=== PATIENT | female | born 1935 | race Caucasian/White ===

== ENCOUNTER 2016-10-17 08:59 | Inpatient (IN) | payer MEDICARE, OTHER ==
--- NOTE | ~2016-10-17 | DS ---
Discharge Summary [facility] [address] [place]. [address] NAME: DIRK BRUNSON : 36 STATUS : DIS IN PAT#: [id number] AGE: 80 ADM/REG DATE : 10/17/16 MR#: [id number] REPORT SERV DATE: 10/30/16 DICTATED BY: JOSEPH PACHECO DATE: 10/29/16 REPORT STATUS : Draft TRANSCRIBED BY: AKIL DATE: 10/29/16 ADMISSION DATE: 10/17/2016 DISCHARGE DATE: 10/29/2016 DISCHARGE DIAGNOSES: 1. Mass in colon. 2. Gastrointestinal bleed. 3. Non-rheumatic aortic valve stenosis. 4. Coronary artery disease involving the left anterior descending. 5. Generalized weakness. 6. Acute kidney injury. 7. Failure to thrive in an adult. 8. Subclinical hypothyroidism. HOSPITAL COURSE: Please note that this discharge summary covers events occurred from 10/26/2016 through 10/29/2016. For the preceding events, please refer to interim discharge summary dictated by Dr. Tao Saab. In summary, by the time I assumed care of the patient, the patient was being evaluated for colectomy given the finding of colonic mass from colonoscopy. The patient had actually went down for surgery, however, the anesthesiologist did not feel comfortable proceeding with the surgery with known severe coronary artery disease, as well as aortic stenosis and thus the surgery itself was canceled. Dr. Jimenez was consulted to evaluate the patient for the aortic stenosis as well as the coronary artery disease with a lesion in LAD. Since then, it took the rest of the hospital stay, to get medical records and the images from [place] for careful planning. The bottom line is, the patient will have scheduled TAVR as well as cardiac cath with potential stent to the lesion in LAD as an outpatient. Otherwise, throughout the hospital stay, the patient remained quite stable and the rest of the hospital stay was uneventful. The patient is now being discharged to home with close outpatient followup instructions including outpatient cardiac cath and potential readmission for TAVR in the coming weeks. DISPOSITION: Home. MEDICATIONS: No new medications. FOLLOWUP: Please follow up with Cardiology and Cardiothoracic Surgery as instructed. A total of 40 minutes spent in coordinating this patient's discharge today. DICTATED BY: MD DEONDRE Kim/MCKAYLA Discharge Summary [place] [address] [place]. [address] NAME: DIRK BRUNSON : 36 STATUS : DIS IN PAT#: [id number] AGE: 80 ADM/REG DATE : 10/17/16 MR#: [id number] REPORT SERV DATE: 10/30/16 DICTATED BY: JOSEPH PACHECO DATE: 10/29/16 REPORT STATUS : Draft TRANSCRIBED BY: MODL DATE: 10/29/16 Joseph Pacheco MD / [id number] CC: Joseph Pacheco MD
--- NOTE | ~2016-10-17 | CN ---
Consultation Report [facility] [address] [place]. [address] NAME: DIRK BRUNSON : 36 STATUS : DIS IN PAT#: [id number] AGE: 80 ADM/REG DATE : 10/17/16 MR#: [id number] REPORT SERV DATE: 11/01/16 DICTATED BY: PAPITO RICH DATE: 10/29/16 REPORT STATUS : Draft TRANSCRIBED BY: MODL DATE: 10/29/16 CONSULTATION DATE OF CONSULTATION: REASON FOR CONSULTATION: Second evaluation for opinion for TAVR. CHIEF COMPLAINT: "I fell." HISTORY OF PRESENT ILLNESS: A 80-year-old female with a history of known aortic stenosis and coronary disease with lesion to her left anterior descending, who presented to the ER approximately a week ago after sustaining a fall at home with subsequent weakness and failure to thrive for several days. She was found to be anemic at baseline with heme- positive stool. A colonoscopy showed a 40 mm polyp in her mid descending colon or sigmoid colon and was being considered for partial colectomy. She was discovered to have severe aortic stenosis and had been initially evaluated in [place] for a TAVR. She is desiring to move her care here and wants to be considered for TAVR here. On transthoracic echo, she has normal LV systolic function with severe aortic stenosis with mild AI, mean gradient of 44, and a peak gradient of 64 with an aortic valve area of 0.7 sq cm. I am being asked to evaluate her for second opinion for TAVR. PAST MEDICAL HISTORY: Significant for severe aortic stenosis, coronary artery disease, carotid artery disease, osteoarthritis, hypertension, paroxysmal atrial fibrillation, and obesity. PAST SURGICAL HISTORY: Right carotid endarterectomy, right hip replacement, hysterectomy. SOCIAL HISTORY: She is . Lives in [place] and [place] with her son, but is transitioning to [place]. FAMILY HISTORY: Noncontributory. ALLERGIES: NO KNOWN MEDICAL ALLERGIES. REVIEW OF SYSTEMS: Please see HPI. MEDICATIONS: Amiodarone 200 per day, Eliquis 2.5 mg b.i.d., Norvasc 5 mg daily, aspirin 81 mg daily, Lipitor 80 mg daily, vitamin D3 at 1000 units daily, Caltrate 600 mg b.i.d., Lasix 20 mg a day, losartan 25 mg b.i.d., metoprolol 25 mg b.i.d., KCl 20 mEq daily, and Betapace 80 mg p.o. q.12 h. PHYSICAL EXAMINATION: VITAL SIGNS: Temperature 96.9, pulse 59, blood pressure 128/54, heart rate of 18, 97% on room air. Consultation Report [facility] [address] [place]. [address] NAME: DIRK BRUNSON : 36 STATUS : DIS IN PAT#: [id number] AGE: 80 ADM/REG DATE : 10/17/16 MR#: [id number] REPORT SERV DATE: 11/01/16 DICTATED BY: PAPITO RICH DATE: 10/29/16 REPORT STATUS : Draft TRANSCRIBED BY: MCKAYLA DATE: 10/29/16 GENERAL: Well-developed, well-nourished white female, resting comfortably in no acute distress. HEENT: A large bruise on her right maxillary portion of her face. NECK: No masses. No bruits. LUNGS: Clear to auscultation bilaterally. HEART: Regular rate and rhythm with a 3/6 systolic ejection murmur. ABDOMEN: Soft, nontender, nondistended. EXTREMITIES: No cyanosis, clubbing, edema. LABORATORY DATA: White count 4.4, H and H of 8.9 and 28.5, platelet count of 255. BMP: Sodium 133, potassium 4.4, chloride of 108, bicarb of 25, BUN of 30, creatinine of 1.2, and glucose of 85. Transthoracic echo as discussed above. Heart catheterization, I do not have the films yet for review, TAVAR quality chest CT is being performed today. IMPRESSION AND PLAN: A 80-year-old female with severe symptomatic aortic stenosis, coronary artery disease, history of carotid artery disease, osteoarthritis, hypertension, paroxysmal atrial fibrillation, and obesity. Putting her in the STS risk calculator, gives a risk score of mortality of 4% with a morbidity-mortality of 22%. This is intermediate risk and I believe that she is a candidate for a transcatheter aortic valve replacement. We need to see the heart catheterization in order to determine suitability for stenting. I believe that if she has single-vessel disease, an LAD stent would be appropriate. Given her appearance, I do think that she is probably a little more frail than the numbers would indicate. I think she would be better suited with a transcatheter aortic valve replacement. She is undergoing a workup for her suitability of femoral approach and we will be following accordingly. NIKA/AKIL Papito Rich MD / [id number] CC: Joseph Sarkar MD
--- NOTE | ~2016-10-17 | CN ---
Consultation Report [facility] [address] [place]. [address] NAME: EMELYN TAI : 37 STATUS : ADM IN PAT#: [id number] AGE: 80 ADM/REG DATE : 10/17/16 MR#: [id number] REPORT SERV DATE: 10/25/16 DICTATED BY: DARRICK COOL DATE: 10/25/16 REPORT STATUS : Draft TRANSCRIBED BY: MODL DATE: 10/25/16 CONSULTATION DATE OF CONSULTATION: Mrs. Emelyn Tai is a 80-year-old female who enters with GI bleed with a history of aortic stenosis and a possible TAVR candidate. 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 CVD PHYSICIAN: Darrick Cool M.D. HISTORY OF PRESENT ILLNESS: Mrs. Emelyn Tai has a long history of coronary artery disease with severe aortic stenosis previously considered for TAVR. She had undergone a cardiac catheterization and did have an LAD lesion. These records are sent for. She now here presents however with GI bleed and was found to have multiple polyps, one was large and unable to be resected without colectomy. She is now scheduled for colectomy. REVIEW OF SYSTEMS: Negative for chest pain, chest discomfort, previous congestive heart failure, syncope, or presyncope. PAST MEDICAL HISTORY: 1. Aortic stenosis, severe. 2. Coronary artery disease with LAD lesion, catheterization has been sent for. 3. Carotid artery disease, status post right carotid endarterectomy. 4. Status post hip replacement in 07/2016. 5. Colonic polyps. SOCIAL HISTORY: She is . She lives with her son and is moving here from [place]. FAMILY HISTORY: Negative for early heart disease. PHYSICAL EXAMINATION: VITAL SIGNS: Blood pressure 129/56, pulse 64, and she is afebrile. GENERAL: Resting comfortably at this time, nutritional status appears adequate. EYES: PERRLA. LUNGS: No labored use of accessory muscles. Without rales or wheezes. COR: PMI is not displaced. No thrills or heaves. NL S1 and S2. No S3. Diffuse 3 to 5/6 systolic flow murmur heard throughout the precordium. PULSES: Carotids without bruits. ABD: +BS, nontender. EXT: No cyanosis, clubbing or edema. SKIN: No petechiae. NEURO: Alert and oriented. Does not appear anxious or depressed. Consultation Report [place] [address] [place]. [address] NAME: EMELYN TAI : 36 STATUS : ADM IN PAT#: [id number] AGE: 80 ADM/REG DATE : 10/17/16 MR#: [id number] REPORT SERV DATE: 10/25/16 DICTATED BY: DARRICK COOL DATE: 10/25/16 REPORT STATUS : Draft TRANSCRIBED BY: MODL DATE: 10/25/16 LABORATORY EVALUATION: At this time, cardiac catheterization has been sent for. Renal function has returned to normal from 1.5 to 1.1. Hematocrit is stable at 28. EKG shows no acute changes. ASSESSMENT: 1. Coronary artery disease with severe aortic stenosis, currently not a candidate for intervention with GI bleed. Await hemicolectomy. 2. Right carotid endarterectomy. We will repeat carotid duplex study. 3. Gastrointestinal bleed. She has had previous surgery just several months ago. We will, at this time, want to proceed with hemicolectomy and then address the aortic valve. DORIAN/MCKAYLA Darrick Cool M.D. / [id number] CC: Pj Salazar M.D.
--- NOTE | ~2016-10-17 | CN ---
Consultation Report [facility] [address] [place]. [address] NAME: DIRK TAI : 36 STATUS : ADM IN PAT#: [id number] AGE: 80 ADM/REG DATE : 10/17/16 MR#: [id number] REPORT SERV DATE: 10/20/16 DICTATED BY: ROSMERY CHUNG DATE: 10/20/16 REPORT STATUS : Draft TRANSCRIBED BY: MODL DATE: 10/20/16 CONSULTATION DATE OF CONSULTATION: 10/20/2016 REASON FOR CONSULTATION: Anemia and Hemoccult-positive stool. HISTORY OF PRESENT ILLNESS: Ms. Tai is a very pleasant, 80-year-old lady, who actually has never had any EGD or colonoscopy in the past. Has been complaining of some bright red blood per rectum on and off. She actually presents with a fall, subsequent injuries to the face and all the workup has been negative as far as any fractures. She was found to have a hemoglobin of 9.1 as opposed to a hemoglobin of 14 about a year to year and half ago. She denies any constipation, but does have some blood in the stool. As mentioned, never had a colonoscopy before. MEDICAL HISTORY: Include: 1. Aortic stenosis. 2. 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 3. Hypertension. 4. Hyperlipidemia. PAST SURGERIES: Include right carotid endarterectomy, partial hysterectomy, and right hip replacement. HOME MEDICATIONS: Amiodarone, Norvasc, Eliquis, aspirin, Lipitor, Caltrate, vitamins, Lasix, Cozaar, Lopressor, potassium, and Betapace. It looks like she has been on Eliquis even here in the hospital. HABITS: Does not smoke or drink. FAMILY HISTORY: Noncontributory. PHYSICAL EXAMINATION: GENERAL: She is an alert, oriented lady in no acute distress, who has black and blues over her face from the fall. VITAL SIGNS: Stable. LUNGS: Reveal good air entry bilaterally. No rales, rhonchi, or rales. CVS: Normal. ABDOMEN: Soft and nondistended, nontender. No mass, guarding, rigidity, or rebound. Liver and spleen are not palpable and clinically, there is no ascites. EXTREMITIES: Without edema. Consultation Report [facility] [address] [place]. [address] NAME: DIRK TAI : 36 STATUS : ADM IN PAT#: [id number] AGE: 80 ADM/REG DATE : 10/17/16 MR#: [id number] REPORT SERV DATE: 10/20/16 DICTATED BY: ROSMERY CHUNG DATE: 10/20/16 REPORT STATUS : Draft TRANSCRIBED BY: MODL DATE: 10/20/16 IMPRESSION: Anemia with Hemoccult-positive stool. Will need an endoscopic evaluation. Eliquis is on hold. Discussed with the patient and family. We will proceed with EGD and colonoscopy on Tuesday. STUDENT MINISTRY PASTOR/MCKAYLA Brian Chung M.D. / [id number] CC: Tao Saab M.D.
--- NOTE | ~2016-10-17 | EGD ---
EGD REPORT [facility] [address] [place]. [address] NAME: EMELYN TAI : 36 STATUS : ADM IN PAT#: [id number] AGE: 80 ADM/REG DATE : 10/17/16 MR#: [id number] REPORT SERV DATE: 10/22/16 DICTATED BY: ROSMERY WISEMAN DATE: 10/22/16 REPORT STATUS : Draft TRANSCRIBED BY: [employer] DATE: 10/22/16 Endoscopy Center Patient Name: Emeyln Tai Date of : 1935 Attending MD: UMU WISEMAN MD Procedure Date No Time: 10/22/2016 Procedure: Upper GI endoscopy Indications: Iron deficiency anemia, Heme positive stool Medicines: See the Anesthesia note for documentation of the administered medications Complications: No immediate complications. Estimated blood loss: None. Procedure: Pre-Anesthesia Assessment: - ASA Grade Assessment: III - A patient with severe systemic disease. After obtaining informed consent, the endoscope was passed under direct vision. Throughout the procedure, the patient's blood pressure, pulse, and oxygen saturations were monitored continuously. The GIF [id number] was introduced through the mouth, and advanced to the second part of duodenum. The upper GI endoscopy was accomplished without difficulty. The patient tolerated the procedure well. Findings: The examined duodenum was normal. The entire examined stomach was normal. The cardia and gastric fundus were normal on retroflexion. The examined esophagus was normal. Impression: - Normal examined duodenum. - Normal stomach. - Normal esophagus. Recommendation: - Patient has a contact number available for emergencies. The signs and symptoms of potential delayed complications were discussed with the patient. Return to normal activities tomorrow. Written discharge instructions were provided to the patient. - Regular diet. - Return patient to hospital nava for ongoing care. - Continue present medications. - Proceed with colonoscopy Procedure Code(s): --- Professional --- 12208, Esophagogastroduodenoscopy, flexible, transoral; EGD REPORT [facility] [address] [place] [address]. [address] NAME: EMELYN TAI : 37 STATUS : ADM IN [facility]#: [id number] AGE: 80 ADM/REG DATE : 10/17/16 MR#: [id number] REPORT SERV DATE: 10/22/16 DICTATED BY: ROSMERY WISEMAN DATE: 10/22/16 REPORT STATUS : Draft TRANSCRIBED BY: [employer] DATE: 10/22/16 diagnostic, including collection of specimen(s) by brushing or washing, when performed (separate procedure) Diagnosis Code(s): --- Professional --- D50.9, Iron deficiency anemia, unspecified R19.5, Other fecal abnormalities CPT copyright 2013 [employer]. All rights reserved. The codes documented in this report are preliminary and upon certified procedural coder review may be revised to meet current compliance requirements. UMU WISEMAN MD 10/22/2016 3:13 PM This report has been signed electronically. Number of Addenda: 0 Note Initiated On: 10/22/2016 2:43 PM Scope Withdrawal Time 0 hours 0 minutes 0 seconds [address] [place] [address]
--- NOTE | ~2016-10-17 | HP ---
History And Physical [place] [address] [place]. [address] NAME: DIRK BRUNSON : 37 STATUS : ADM Elvie PAT#: [id number] AGE: 80 ADM/REG DATE : 10/17/16 MR#: [id number] REPORT SERV DATE: 10/17/16 DICTATED BY: JOSEPH PACHECO DATE: 10/17/16 REPORT STATUS : Draft TRANSCRIBED BY: MODL DATE: 10/17/16 DATE OF ADMISSION: 10/17/2016 CHIEF COMPLAINT: Generalized weakness and failure to thrive. HISTORY OF PRESENT ILLNESS: This is a 80-year-old lady who actually had a fall past and was seen in the ER, presenting again with continued generalized weakness and failure to thrive. On , the patient had a mechanical fall and was evaluated here in our ER. The patient had a CT of the brain and the face soft tissues as patient has significant ecchymoses over her right face. The scans were nonacute and the patient was subsequently discharged home. At that time, the patient was also complaining of some right-sided chest wall pain, however, patient has stable respiratory dynamics and chest x-ray was not performed at that time. The patient was instructed to return to the ER if patient was not getting any better. Over the past three days, the patient unfortunately continued to get weak. The patient reports of having had poorly controlled pain, and this morning, the patient was suffering from mild shortness of breath related to uncontrolled pain. Family decided to bring patient back to the ER for further evaluation and care. In the ER, patient was found to be afebrile and hemodynamically stable. Initial lab evaluation was actually all very benign except for a hemoglobin of 9.1. The patient does not have any overt bleeding history, but patient's hemoglobin was as high as 14 just about one year ago. The patient had extensive imaging in the ER to include chest x-ray, CT of head, chest, abdomen, and pelvis as well as cervical spine, which were all nonacute. Internal medicine consultation was requested for admission of patient for further evaluation and care. REVIEW OF SYSTEMS: Patient denies any fevers or chills. Also, 14-point review of systems reviewed and negative other than mentioned above. MEDICATIONS: The list is still pending at this time. PAST MEDICAL HISTORY: 1. Aortic stenosis. 2. Coronary artery disease with apparent cardiac lesion at LAD, which will need to be stented sometime in the future. 3. Hypertension. 4. Hyperlipidemia. PAST SURGICAL HISTORY: 1. Right-sided carotid endarterectomy. 2. Partial hysterectomy. 3. Right hip replacement. FAMILY HISTORY: Negative. History And Physical [address] [address] NAME: DIRK BRUNSON : 37 STATUS : ADM Elvie PAT#: [id number] AGE: 80 ADM/REG DATE : 10/17/16 MR#: [id number] REPORT SERV DATE: 10/17/16 DICTATED BY: JOSEPH PACHECO DATE: 10/17/16 REPORT STATUS : Draft TRANSCRIBED BY: MCKAYLA DATE: 10/17/16 SOCIAL HISTORY: The patient does not smoke, drink alcohol, or use any illicit drugs. The patient lives at home with her son. 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 The patient does not really have a family physician here in town. PHYSICAL EXAMINATION: VITAL SIGNS: Temperature 97.2, blood pressure 147/67, pulse is 74, respiratory rate is 22, saturating 94% on 2 L of oxygen per nasal cannula. NEUROLOGIC: The patient is alert and oriented x3 with no focal neurologic deficits. GENERAL: The patient is awake, does not appear to be in any acute distress, and she is cooperative. NECK: No JVD. No lymphadenopathy. Normal thyroid. CHEST: No midline sternotomy scar and no tenderness to palpation. LUNGS: Clear to auscultation bilaterally with normal respiratory effort on 2 L of oxygen per nasal cannula. CARDIOVASCULAR: Regular rate and rhythm with no murmurs, rubs, or gallops, and PMI is nondisplaced. ABDOMEN: Soft, nontender, with active bowel sounds and no organomegaly. EXTREMITIES: No edema. Normal distal pulses. No calf tenderness. SKIN: Clean, dry, warm, and intact. LABORATORY DATA: Sodium is 138, potassium 4.5, chloride 110, BUN 28, creatinine 1.00, glucose 93, calcium 9.5, magnesium 2.3. White blood cell count is 5.2, hemoglobin is 9.1, platelets 259. INR is 1.3. Troponin is less than 0.02. BNP is 567.9. Chest x-ray is personally interpreted and it shows a shallow inspiration, but otherwise nonacute. CT of the chest, abdomen, and pelvis were nonacute, other than a nonspecific right adrenal mass at size 13 x 25 mm associated with calcification. CT of the head was nonacute and CT of the cervical spine was also nonacute, although it did show chronic degenerative changes. ASSESSMENT: This is a 80-year-old lady with hypertension, hyperlipidemia, coronary artery disease, and aortic stenosis presenting with failure to thrive. 1. Failure to thrive with fall and generalized weakness. 2. Poorly controlled pain after a fall, status post failed outpatient therapy. 3. Likely pulmonary contusion. 4. Anemia with hemoglobin of 9.1, whereas her hemoglobin was 14 one year ago. No apparent acute bleeding episodes and the patient has normocytic anemia. 5. Hypertension. 6. Coronary artery disease. 7. Hyperlipidemia. 8. Aortic stenosis. PLAN: My plan is to admit the patient under telemetry monitoring. The patient will be given supportive care with better pain control and IV fluids. The patient will be given incentive spirometer to exercise the lungs, and the patient will be seen by Physical Therapy also. For the anemia, I will check iron levels along with TSH, B12, LFTs, and reticulocyte count. Further evaluation pending above labs. Otherwise, for the rest of stable past medical conditions including hypertension, hyperlipidemia, coronary artery disease, aortic stenosis, History And Physical [address] [address] NAME: DIRK BRUNSON : 37 STATUS : ADM Elvie PAT#: [id number] AGE: 80 ADM/REG DATE : 10/17/16 MR#: [id number] REPORT SERV DATE: 10/17/16 DICTATED BY: JOSEPH PACHECO DATE: 10/17/16 REPORT STATUS : Draft TRANSCRIBED BY: MODL DATE: 10/17/16 et yas, I will continue home medications. Standard DVT prophylaxis. The patient is full code at this time. [facility]/MCKAYLA Joseph Pacheco MD / [id number] CC: Joseph Pacheco MD
--- NOTE | ~2016-10-17 | CN ---
Consultation Report [facility] [address] [place]. [address] NAME: DIRK BRUNSON : 37 STATUS : DIS IN PAT#: [id number] AGE: 81 ADM/REG DATE : 10/17/16 MR#: [id number] REPORT SERV DATE: 11/09/16 DICTATED BY: NELLI JIMENEZ DATE: 11/08/16 REPORT STATUS : Draft TRANSCRIBED BY: MODL DATE: 11/08/16 CONSULTATION DATE OF CONSULTATION: 10/27/2016 REASON FOR CONSULTATION: Evaluation for severe aortic valve stenosis and coronary artery disease. HISTORY OF PRESENT ILLNESS: This is a 80-year-old female who either had a syncopal episode or trip and fall several days prior to this admission. She was seen in the emergency room and had bruising about the face. She presented back to the emergency room with her son and had continued generalized weakness and failure to thrive following this emergency room visit. She was admitted to the hospital and underwent CT scan of the brain and face and soft tissues. There was no fractures seen on those studies. Because of the patient's continued weakness following her ER visit, her son brought her back to the hospital. In addition, the patient was complaining of discomfort in her chest and some mild shortness of breath. In the emergency room, the patient was hemodynamically stable. Hemoglobin was mildly reduced at 9.1 mg/dL. She has no history of overt bleeding, however, this is a drop from the patient's hemoglobin of 14 one year ago. The patient has a known history of coronary artery disease and aortic valve stenosis and was being considered for possible aortic valve replacement and coronary artery bypass grafting. We were asked to see the patient following being referred to the operating suite for possible sigmoid colectomy. During the hospitalization, the patient had a colonoscopy. She did have large polyp approximately 40 cm in, that was sessile and was suspicious for malignancy on biopsy. The patient was not obstructed. She had several other polyps removed, and in the interim, her stools did not demonstrate any melena. The echocardiogram from [place] where the patient was evaluated for aortic valve replacement demonstrated a small aortic valve 0.7 sq cm with a peak gradient 64 mmHg. Because of the patient's tight aortic valve stenosis and coronary artery disease of the LAD from previous catheterization, it was felt that the patient was too high risk for sigmoid colectomy. We talked with the patient about possible aortic valve replacement. The patient does have significant dyspnea with exertion, fatigue, weakness, and chest discomfort. The patient and her son both corroborate, they felt that this was not a syncopal episode that led to her fall but merely clumsiness and a trip that the patient had. She is not having active GI blood loss to my knowledge at this time. PAST MEDICAL HISTORY: Significant for: 1. Aortic valve stenosis. 2. Coronary artery disease with LAD lesion. 3. Hypertension. 4. Hyperlipidemia. 5. Paroxysmal atrial fibrillation. 6. Obesity. Consultation Report [facility] [id number] [place]. [address] NAME: DIRK BRUNSON : 36 STATUS : DIS IN PAT#: [id number] AGE: 81 ADM/REG DATE : 10/17/16 MR#: [id number] REPORT SERV DATE: 11/09/16 DICTATED BY: NELLI JIMENEZ DATE: 11/08/16 REPORT STATUS : Draft TRANSCRIBED BY: MCKAYLA DATE: 11/08/16 PAST SURGICAL HISTORY: 1. Includes right-sided carotid endarterectomy, so peripheral vascular disease is a history. 2. Partial hysterectomy. 3. Right hip replacement. FAMILY HISTORY: Noncontributory. SOCIAL HISTORY: The patient does have a history of smoking in the distant past. She currently lives between [place] and [place] with her son and gradually is transitioning to living in [place] all the time. She has no family physician in this town. MEDICATIONS: In the hospital at the time of evaluation include amiodarone, Eliquis, Norvasc, aspirin, Lipitor, vitamin D3, Caltrate, Lasix, losartan, Lopressor, potassium, and Betapace. PHYSICAL EXAMINATION: VITAL SIGNS: In the hospital, the patient's heart rate was in the 70s and sinus, her blood pressure was 130s over 70s. Respiratory rate was not elevated. Oxygen saturation was 94% on 2 L oxygen and temperature was 97.2. GENERAL: She is an obese white female, appears elderly and frail. HEENT: She is normocephalic. She does have some ecchymosis about the right side of her face from her recent fall. Pupils are reactive to light. NECK: Supple with good range of motion. There was no JVD. We did have bilateral radiated carotid bruits. CHEST: Demonstrates some tenderness of the right chest with a small amount of bruising noted. No palpable deformity was obtained. LUNG: Sounds were clear bilaterally. HEART: Demonstrates a regular rate and rhythm with a harsh systolic murmur, grade 4/6. Pedal pulses were diminished. Right endarterectomy scar was noted. ABDOMEN: Obese. Bowel sounds positive. Nontender and nondistended. No masses were palpated. MUSCULOSKELETAL: There is no clubbing, cyanosis, or edema noted. NEUROLOGICAL: The patient is resting comfortably in a chair. We did not ask her to walk. She moved all four extremities to command and voluntarily. Laboratories and x-ray studies can be found on the patient's record. IMPRESSION: 1. Significant aortic valve stenosis. We talked to the patient and her son about possible aortic valve replacement. She has significant coronary artery disease in addition. STS predicted risk of mortality was in excess of 4% morbidity and mortality was predicted to greater than 22%. I felt that the patient was at higher risk than reported from the STS because of her recent episodes. I believe that surgical aortic valve replacement with the least intermediate risk in this patient, and we discussed Consultation Report [address] [place]. [address] NAME: DIRK BRUNSON : 37 STATUS : DIS IN PAT#: [id number] AGE: 81 ADM/REG DATE : 10/17/16 MR#: [id number] REPORT SERV DATE: 11/09/16 DICTATED BY: NELLI JIMENEZ DATE: 11/08/16 REPORT STATUS : Draft TRANSCRIBED BY: MODShan DATE: 11/08/16 possible TAVR procedure with her and her son. They understood the procedure, they understand also possible catastrophic complication during the procedure and agreed to sternotomy and cardiopulmonary bypass should this be necessary during the case. We discussed the operation at length, and after discussion of the procedure, its indication and risks, they wished to proceed with possible TAVR consideration. 2. Coronary artery disease. Plan is to show these films to Anthony Thel and consider patient for possible combined TAVR and staged PTCA of the LAD. 3. Chronic blood-loss anemia. The patient has had polyps removed and is heme-negative at this time. She has 1 suspicious polyp in the sigmoid colon that will await biopsy and resection after disposition of the valve and coronary artery disease is made. 4. Hypertension. 5. Failure to thrive. DIEGO/MCKAYLA Nelli Jimenez M.D. / [id number] CC: Joseph Sarkar MD
--- NOTE | ~2016-10-17 | PRECARD ---
[facility] [address] [place]. [address] NAME: EMELYN TAI : 37 STATUS : ADM IN [facility]#: [id number] AGE: 80 ADM/REG DATE : 10/17/16 MR#: [id number] REPORT SERV DATE: 10/28/16 DICTATED BY: ELIDA ARANDA DATE: 10/28/16 REPORT STATUS : Draft TRANSCRIBED BY: MCKAYLA DATE: 10/28/16 DATE OF ADMISSION: 10/17/2016 HISTORY OF PRESENT ILLNESS: Ms. Emelyn Tai is a 80-year-old woman with coronary artery disease and aortic stenosis. Ms. Tai lives both in [place], [place] as well as [place], [place]. She has been followed in [place], [place] for severe aortic stenosis. She was scheduled for surgical aortic valve replacement, although TAVR is also being considered. Cardiac catheterization in [place] demonstrated an LAD stenosis. She was scheduled for angioplasty of that vessel, in fact this week. Ms. Tai has had three different falls. Each time, she was walking and tripped. She did not have syncope. Each time, she tripped on a curb or a step or uneven sidewalk. She had no loss of consciousness. She had no palpitations. She did fall recently, developed an ecchymosis on the right side of her face and a possible pulmonary contusion. She describes easy fatigue, decreased exercise tolerance. She has to stop walking on level ground less than 30 yards. She also has a decreased exercise tolerance, doing daily chores within the house. She has not had chest pain. She has not had orthopnea or PND. Ms. Tai has presented with chronic anemia and colonoscopy demonstrated a sessile tubulovillous adenoma. She was scheduled for a laparoscopic right colectomy this admission. PAST MEDICAL HISTORY: Hypertension, hyperlipidemia, right carotid endarterectomy, partial hysterectomy, right hip replacement, atrial fibrillation. MEDICATIONS: Amlodipine, aspirin, Lipitor, Lopressor, Betapace, sotalol, and amiodarone. PHYSICAL EXAMINATION: VITAL SIGNS: 120/70, heart rate about 70. GENERAL: Comfortable, in no acute distress. HEENT: No xanthelasma; lips without cyanosis LUNGS: Clear to auscultation, no wheezes, rales or rhonchi; good breath sounds. CARDIOVASCULAR: 6/6 murmur heard without a stethoscope. Right upper sternal border and left upper sternal border late-peaking, decreased, but present S2. ABDOMEN: Bowel sounds positive, normal activity, without tenderness, masses or hepatosplenomegaly. EXTREMITIES: No edema, cyanosis. SKIN: Normal turgor. Ms: Normal muscle strength, without kyphosis/scoliosis. NEURO/PSYCH: Alert and oriented times 4, no apparent anxiety or depression. LABORATORIES: BUN is 30, creatinine 1.2. Hematocrit is 28.5. Troponin less than 0.02. BNP is 346. Echocardiogram, normal EF, aortic valve area is 0.7, mean gradient 44, peak [facility] [address] [address] NAME: EMELYN TAI : 37 STATUS : ADM IN [facility]#: [id number] AGE: 80 ADM/REG DATE : 10/17/16 MR#: [id number] REPORT SERV DATE: 10/28/16 DICTATED BY: ELIDA ARANDA DATE: 10/28/16 REPORT STATUS : Draft TRANSCRIBED BY: MCKAYLA DATE: 10/28/16 gradient 66. EKG is sinus rhythm with leftward axis LVH. ASSESSMENT: Ms. Tai is a 80-year-old woman with severe aortic stenosis, valve area of 0.7, with coronary artery disease, with LAD stenosis by catheterization in [place], [place]. I do not have those cath films, we are waiting for them to arrive by [employer] from [place]. She also has a tubulovillous polyp in the right colon. I have discussed her presentation with Dr. Andrade of anesthesia and Dr. Jimenez of Thoracic Surgery. Dr. Jimenez, and Dr. Melchor have discussed this as well. The plan will be to obtain these cath films from [place], [place]. Then, likely proceed with angioplasty of the LAD stenosis with stent placement. Then, proceeded with transcatheter aortic valve replacement. I had a prolonged discussion with these procedures with Ms. Tai and her delightful son. They understand the risks, benefits, alternatives, and request to proceed. Eliquis has been stopped. Amiodarone has been stopped as well. PLAN: 1. Obtain cath films. 2. Review cath films, then likely proceed with PCI stent placement to the LAD stenosis. 3. Elective TAVR. 4. We will hold Eliquis in the interim. 5. Eventual right colectomy with Dr. Melchor. STACI/MCKAYLA Elida Aranda M.D. / [id number] CC: Joseph Sarkar MD
--- NOTE | ~2016-10-17 | EGD ---
EGD REPORT [facility] [address] [address] NAME: EMELYN TAI : 37 STATUS : ADM IN PAT#: [id number] AGE: 80 ADM/REG DATE : 10/17/16 MR#: [id number] REPORT SERV DATE: 10/22/16 DICTATED BY: ROSMERY WISEMAN DATE: 10/22/16 REPORT STATUS : Draft TRANSCRIBED BY: [facility] DATE: 10/22/16 Endoscopy Center Patient Name: Emelyn Tai Date of : 1935 Attending MD: UMU WISEMAN MD Procedure Date No Time: 10/22/2016 Procedure: Colonoscopy Indications: Heme positive stool, Iron deficiency anemia Medicines: See the Anesthesia note for documentation of the administered medications Complications: No immediate complications. Estimated blood loss: None. Procedure: Pre-Anesthesia Assessment: - ASA Grade Assessment: III - A patient with severe systemic disease. After I obtained informed consent, the scope was passed under direct vision. Throughout the procedure, the patient's blood pressure, pulse, and oxygen saturations were monitored continuously. The PCF [id number] was introduced through the anus and advanced to the cecum, identified by appendiceal orifice and ileocecal valve. The ileocecal valve, appendiceal orifice and rectum were photographed. The entire colon was examined. The colonoscopy was performed without difficulty. The patient tolerated the procedure well. The quality of the bowel preparation was adequate. Findings: The perianal and digital rectal examinations were normal. A sessile polyp was found in the mid ascending colon. The polyp was 40 mm in size. Spread over a large fold. Too big to take out, so multiple jumbo biopsied were done and area tattooed Biopsies were taken with a cold forceps for histology. Area was successfully injected with 2 mL Spot (carbon black) for drug delivery. A sessile polyp was found in the cecum. The polyp was 5 mm in size. The polyp was removed with a jumbo cold forceps. Resection and retrieval were complete. A sessile polyp was found in the proximal descending colon. The polyp was 5 mm in size. The polyp was removed with a jumbo cold forceps. Resection and retrieval were complete. A sessile polyp was found at 10 cm proximal to the anus. The polyp was 12 mm in size. The polyp was removed with a hot snare. Resection and retrieval were complete. A sessile polyp was found at 5 cm proximal to the anus. The polyp was 20 mm in size. The polyp was removed with a hot snare. Resection and retrieval were complete. EGD REPORT [address] [address] NAME: EMELYN TAI : 37 STATUS : ADM IN [facility]#: [id number] AGE: 80 ADM/REG DATE : 10/17/16 MR#: [id number] REPORT SERV DATE: 10/22/16 DICTATED BY: ROSMERY WISEMAN DATE: 10/22/16 REPORT STATUS : Draft TRANSCRIBED BY: [employer] DATE: 10/22/16 Non-bleeding internal hemorrhoids were found during retroflexion and were Grade I (internal hemorrhoids that do not prolapse). No other significant abnormalities were identified in a careful examination of the remainder of the colon. Impression: - One 40 mm polyp in the mid ascending colon. Biopsied. Injected. - One 5 mm polyp in the cecum. Resected and retrieved. - One 5 mm polyp in the proximal descending colon. Resected and retrieved. - One 12 mm polyp at 10 cm proximal to the anus. Resected and retrieved. - One 20 mm polyp at 5 cm proximal to the anus. Resected and retrieved. - Non-bleeding internal hemorrhoids. Recommendation: - Patient has a contact number available for emergencies. The signs and symptoms of potential delayed complications were discussed with the patient. Return to normal activities tomorrow. Written discharge instructions were provided to the patient. - Regular diet. - Return patient to hospital [facility]ava for ongoing care. - Await pathology results. Procedure Code(s): --- Professional --- 45581, Colonoscopy, flexible, proximal to splenic flexure; with removal of tumor(s), polyp(s), or other lesion(s) by snare technique 69518, 59, Colonoscopy, flexible, proximal to splenic flexure; with biopsy, single or multiple 06528, Colonoscopy, flexible, proximal to splenic flexure; with directed submucosal injection(s), any substance Diagnosis Code(s): --- Professional --- D12.6, Benign neoplasm of colon, unspecified D12.4, Benign neoplasm of descending colon D12.0, Benign neoplasm of cecum D12.2, Benign neoplasm of ascending colon K64.0, First degree hemorrhoids R19.5, Other fecal abnormalities D50.9, Iron deficiency anemia, unspecified CPT copyright 2013 [employer]. All rights reserved. EGD REPORT [address] [address] NAME: EMELYN TAI : 37 STATUS : ADM IN [facility]#: [id number] AGE: 80 ADM/REG DATE : 10/17/16 MR#: [id number] REPORT SERV DATE: 10/22/16 DICTATED BY: ROSMERY WISEMAN DATE: 10/22/16 REPORT STATUS : Draft TRANSCRIBED BY: [employer] DATE: 10/22/16 The codes documented in this report are preliminary and upon branch director review may be revised to meet current compliance requirements. UMU WISEMAN MD 10/22/2016 3:53 PM This report has been signed electronically. Number of Addenda: 0 Note Initiated On: 10/22/2016 2:42 PM Scope Withdrawal Time 0 hours 30 minutes 35 seconds [address] [id number]
--- NOTE | ~2016-10-17 | IDS ---
Interim Discharge Summary [facility] [address] [place]. [address] NAME: DIRK BRUNSON : 37 STATUS : ADM IN [facility]#: [id number] AGE: 80 ADM/REG DATE : 10/17/16 MR#: [id number] REPORT SERV DATE: 10/26/16 DICTATED BY: EMMANUEL SAAB DATE: 10/25/16 REPORT STATUS : Draft TRANSCRIBED BY: MODL DATE: 10/25/16 ADMISSION DATE: 10/17/2016 DISCHARGE DATE: DATE OF INTERIM SUMMARY: 10/25/2016 CURRENT DIAGNOSES: 1. Fall associated with generalized weakness and failure to thrive, present on admission. 2. Gastrointestinal bleeding. 3. Acute blood loss anemia. 4. Iron-deficiency anemia, treated with Nulecit. 5. Colonoscopy, 10/22/2016, findings with pathology as follows:. a. Mid ascending colon nonresectable polyp, tubulovillous adenoma, no high- grade dysplasia. b. Cecal polypectomy, tubular adenoma, no high-grade dysplasia. c. Proximal descending colon polyp, tubular adenoma, no high-grade dysplasia. d. Rectal biopsy, tubulovillous adenoma, no high-grade dysplasia. e. Rectal polypectomy, pedunculated tubulovillous adenoma with high-grade dysplasia. 6. Upper gastrointestinal endoscopy, 10/22/2016, with endoscopic findings; normal esophagus, stomach, and examined duodenum. 7. Severe aortic stenosis by echocardiography. Mean gradient 44, peak gradient 64, and aortic valve area of 0.7. Patient pre-transcatheter aortic valve replacement in [place] prior to admission here. 8. Mild mitral and tricuspid regurgitation by echocardiography. 9. Coronary artery disease. Pre-percutaneous coronary intervention in [place] prior to admission here. 10.Paroxysmal atrial fibrillation, on Eliquis, amiodarone, sotalol, and metoprolol with sinus rhythm here. 11.Hypertension, medications deescalated this admission. 12.Acute kidney injury on chronic kidney disease 3 associated with colonoscopy prep and procedure, improved with IV fluids and medication adjustment. 13.Subclinical hypothyroidism, treatment on hold because of current comorbidities. 14.07/2016, hip fracture, right, with repair without perioperative surgical complications. 15.Right adrenal nodule. 16.Previous right carotid endarterectomy. 17.Previous stroke. 18.Previous T8 and pubic rami fractures. OPERATION/PROCEDURES: Upper GI endoscopy and colonoscopy, 10/22/2016. PRESENT ILLNESS: This is a 80-year-old white female who was triaged in the emergency room on 10/17/2016 at 0822 hours after a fall complaining of right rib pain. Admission vital signs, blood pressure 170/81, temperature 97.2, pulse 78, and respirations 24. After evaluation in the emergency room, she was found to have a hemoglobin of 9.1, a BNP of Interim Discharge Summary [address] [address] NAME: DIRK BRUNSON : 37 STATUS : ADM IN [facility]#: [id number] AGE: 80 ADM/REG DATE : 10/17/16 MR#: [id number] REPORT SERV DATE: 10/26/16 DICTATED BY: EMMANUEL SAAB DATE: 10/25/16 REPORT STATUS : Draft TRANSCRIBED BY: MCKAYLA DATE: 10/25/16 568. She was referred to the Hospitalist Service for admission. She was seen by Dr. Sarkar and admitted as described on admission history and physical examination. ADDITIONAL HISTORY: Per Dr. Sarkar. PHYSICAL EXAMINATION: Per Dr. Sarkar. ADMISSION LABORATORY: Per Dr. Sarkar. HOSPITAL COURSE: She was admitted by Dr. Sarkar to [address] [place] [address] with: 1. Failure to thrive with fall and generalized weakness. 2. Poorly controlled pain after a fall, status post failed outpatient therapy. 3. Likely pulmonary contusion. 4. Anemia. 5. Hypertension. 6. Coronary artery disease. 7. Hyperlipidemia. 8. Aortic stenosis. She was given IV fluids, pain control, incentive spirometry, and Physical Therapy was consulted. Additional diagnostic studies regarding her anemia were obtained. Her hospitalist care was by Dr. Sarkar on 10/17/2016 and 10/18/2016 and then the undersigned from 10/19/2016 through 10/25/2016. Relative to her fall, she was seen by Physical Therapy. Home care was recommended. During the course of her hospitalization to date, her pain control and mobility have improved. Additional imaging was done regarding her fall. Of note was that she had been in the emergency room on 10/14/2016 when she had a brain CT and face CT without definite identified fracture. On 10/17/2016, a CT of brain without contrast showed no acute intracranial abnormality. There was atrophy. There was an old left basal ganglia infarct and chronic microvascular ischemic changes. A CT scan of the cervical spine showed multiple-level degenerative disk changes with uncinate osteophytes and facet arthropathy resulting in levels of foraminal narrowing as detailed in official report. A CT scan of her chest and abdomen also done on admission showed minimal atelectasis primarily in dependent lung bases. Calcific atherosclerosis. Old compression fracture, T8. No evidence of acute abnormality within the abdomen or pelvis. Nonspecific right adrenal mass. Calcific atherosclerosis in the abdomen. Previous hysterectomy. Right hip prosthesis. Old traumatic deformities of the left superior and inferior pubic rami. Additional laboratory studies obtained on admission included a TSH that was 11.2 with a free Interim Discharge Summary [address] [address] NAME: DIRK BRUNSON : 37 STATUS : ADM IN [facility]#: [id number] AGE: 80 ADM/REG DATE : 10/17/16 MR#: [id number] REPORT SERV DATE: 10/26/16 DICTATED BY: EMMANUEL SAAB DATE: 10/25/16 REPORT STATUS : Draft TRANSCRIBED BY: MCKAYLA DATE: 10/25/16 T4 normal at 1.46. Synthroid was not initiated because of her other comorbidities as outlined above and to be detailed below. Her iron was low at 26 as was her ferritin of 32. She was given IV iron replacement with Nulecit. Her hemoglobins while hospitalized have remained generally in the 8 to 9 range. She has a history of bright red bleeding per rectum. Three stools tested positive for blood here. This was on Eliquis. She and her family provided a history that she had been evaluated in [place] where she has been living for coronary artery disease and aortic valve disease. She is pre-PCI and TAVR. She is on Eliquis for paroxysmal atrial fibrillation in addition to an 81 mg aspirin. Given her gastrointestinal bleeding, it was felt that further GI evaluation should be pursued before any of her cardiac procedures. 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 Her family decided to pursue this here. Her Eliquis was held. GI consultation was obtained. She was seen by Dr. Chung. The above-mentioned procedures were performed as described with findings as noted. Of note is that a sessile polyp was found in the mid ascending colon. It was 40 mm in size. It was spread over a large fold. It was too big to take out, so multiple biopsies were done. Pathology is as noted. The post-procedure plan was for her to return to [place] to have her colon surgery again under the auspices of her cardiologists there, but her family decided on 10/24/2016 that they would like to pursue that evaluation here. Cardiology and Surgery consultations were obtained today. She has been seen by [facility] Cardiology and Dr. Melchor. She is currently off her Eliquis. In a complex constellation of problems, it is felt she does have a degree of stability and recent available surgical history to warrant pursuing a laparoscopic right colectomy. This will be performed tomorrow. Associated with her colonoscopy prep and colonoscopy, she did develop some acute kidney injury with creatinine rising from 0.96 to 1.46 on 10/22/2016 to 10/23/2016. With rehydration and holding her home Lasix and ARB, her creatinine today is 1.08. Hospitalist care to be assumed by [address] [place] [address] Team on 10/26/2016. Note, Cardiology records from [place] requested x2 but yet to be received. DD/MODL Emmanuel Saab M.D. / [id number] Interim Discharge Summary [address] [address] NAME: DIRK BRUNSON : 37 STATUS : ADM IN [facility]#: [id number] AGE: 80 ADM/REG DATE : 10/17/16 MR#: [id number] REPORT SERV DATE: 10/26/16 DICTATED BY: EMMANUEL SAAB DATE: 10/25/16 REPORT STATUS : Draft TRANSCRIBED BY: MODL DATE: 10/25/16 CC: Emmanuel Saab M.D.
[~2016-10-17 08:59] MED LIST: APRES25 PO; BETAPACE80 PO; COZ25 PO; ELIQUIS 5 MG TAB5 MG PO; HALF81 PO; KDUR10 PO; LIPITOR80 MG PO; VITAMIN D31000 UNIT PO
[2016-10-17 09:14] LABS: BASOPHILS 0.2 %; BASOPHILS ABSOLUTE 0.01 10/3/uL (0.0-0.16); EOSINOPHILS 1.9 %; ER CBC TAT 0 Hrs 13 Mins; HEMATOCRIT 29.8 % (36.0-48.0); HEMOGLOBIN 9.1 g/dL (12.0-16.0); LYMPHOCYTES 15.3 %; LYMPHOCYTES ABSOLUTE 0.79 10/3/uL (0.67-4.30); MANUAL DIFF NO %; MEAN CORPUS HGB CONC 30.5 g/dL (32.0-36.0); MEAN CORPUSCULAR HEMOGLOB 26.9 pg (26.0-34.0); MEAN CORPUSCULAR VOLUME 88.2 fL (80-100); MEAN PLATELET VOLUME 9.4 fL (9.2-13.0); MONOCYTES 6.8 %; MONOCYTES ABSOLUTE 0.35 10/3/uL (0.21-1.20); NEUTROPHILS 75.8 %; NEUTROPHILS ABSOLUTE 3.92 10/3/uL (2.02-8.40); PLATELET COUNT 259 10/3/uL (150-400); RBC DISTRIBUTION WIDTH 15.3 % (12.0-16.0); RED CELL COUNT 3.38 10/6/uL (4.0-5.6); WHITE BLOOD CELLS 5.2 10/3/uL (4.5-10.5)
[2016-10-17 09:20] LABS: INTERNATIONAL NORMAL RATI 1.3 UNITS (-); PARTIAL THROMBO TIME 26.4 SEC (22.5-37.2); PROTIME (NOT ORD) 16.4 SEC (12.0-14.5)
[2016-10-17 09:24] LABS: CALCIUM, SERUM 9.5 MG/DL (8.5-10.4); CHEST PAIN PROFILE TAT 0 Hrs 23 Mins; CHLORIDE, SERUM 110 MMOL/L (96-112); CO2 (CARBON DIOXIDE) 24 MMOL/L (24-34); GFR AFRICAN AMERICAN 62 ML/MIN (>=60); GFR NON AFRICAN AMERICAN 54 ML/MIN (>=60); GLUCOSE, SERUM 93 MG/DL (60-99); SODIUM, SERUM 138 MMOL/L (135-148); TROPONIN I <0.02 NG/ML (<0.05)
[2016-10-17 09:26] LABS: BUN (BLOOD UREA NITROGEN) 28 MG/DL (6-23); POTASSIUM, SERUM 4.5 MMOL/L (3.5-5.3)
[2016-10-17] MEDS ORDERED: HALF81 PO (12:23)
[2016-10-17] MEDS ORDERED: BETAPACE80 PO (12:24)
[2016-10-17] MEDS ORDERED: CALTRA600D PO (12:24)
[2016-10-17] MEDS ORDERED: ELIQUIS 2.5 MG2.5 MG PO (12:24)
[2016-10-17] MEDS ORDERED: COZ25 PO (12:24)
[2016-10-17] MEDS ORDERED: VITAMIN D31000 UNIT PO (12:24)
[2016-10-17] MEDS ORDERED: KLOR-CON M2020 MEQ PO (12:25)
[2016-10-17] MEDS ORDERED: LIPITOR80 MG PO (12:27)
[2016-10-17] MEDS ORDERED: L20 PO (12:27)
[2016-10-17] MEDS ORDERED: NORV5 PO (12:27)
[2016-10-17] MEDS ORDERED: CORDARONE PO (12:28)
[2016-10-17] MEDS ORDERED: LOP25 PO (12:28)
[2016-10-17 15:11] LABS: A/G RATIO 0.9 (0.7-1.9); ALBUMIN 3.4 G/DL (3.5-5.0); ALKALINE PHOSPHATASE 150 U/L (45-117); DIRECT BILIRUBIN 0.1 MG/DL (0.0-0.4); FERRITIN 32 NG/ML (8-252); FOLATE 16.1 NG/ML (>5.2); GLOBULIN 3.7 G/DL (2.5-4.1); INDIRECT BILIRUBIN(NOT ORDER) 0.3 MG/DL (0.1-0.9); IRON BINDING CAPACITY 370 MCG/DL (225-410); IRON, SERUM 26 MCG/DL (35-150); SGOT(AST) 21 U/L (5-40); SGPT(ALT) 19 U/L (5-65); TOTAL BILIRUBIN 0.4 MG/DL (0-1.2); TOTAL PROTEIN 7.1 G/DL (6.0-8.5)
[2016-10-17 22:22] LABS: RETICULOCYTE COUNT 1.4 % (0.5-2.9); RETICULOCYTE COUNT ABSOLUTE 50.8 10/3/uL (20.2-119.8)
[2016-10-18 04:34] LABS: BASOPHILS 0.5 %; BASOPHILS ABSOLUTE 0.02 10/3/uL (0.0-0.16); EOSINOPHILS 4.5 %; EOSINOPHILS ABSOLUTE 0.19 10/3/uL (0.0-0.53); HEMOGLOBIN 7.9 g/dL (12.0-16.0); IMMATURE GRANULOCYTES 0.2 %; IMMATURE GRANULOCYTES ABSOLUTE 0.01 10/3/uL (0.0-0.11); LYMPHOCYTES 19.5 %; LYMPHOCYTES ABSOLUTE 0.83 10/3/uL (0.67-4.30); MANUAL DIFF NO %; MEAN CORPUS HGB CONC 30.4 g/dL (32.0-36.0); MEAN CORPUSCULAR HEMOGLOB 26.8 pg (26.0-34.0); MEAN CORPUSCULAR VOLUME 88.1 fL (80-100); MEAN PLATELET VOLUME 9.2 fL (9.2-13.0); MONOCYTES 8.9 %; MONOCYTES ABSOLUTE 0.38 10/3/uL (0.21-1.20); NEUTROPHILS 66.4 %; NEUTROPHILS ABSOLUTE 2.83 10/3/uL (2.02-8.40); PLATELET COUNT 242 10/3/uL (150-400); RBC DISTRIBUTION WIDTH 15.3 % (12.0-16.0); RED CELL COUNT 2.95 10/6/uL (4.0-5.6); WHITE BLOOD CELLS 4.3 10/3/uL (4.5-10.5)
[2016-10-18 04:48] LABS: CALCIUM, SERUM 8.9 MG/DL (8.5-10.4); CHLORIDE, SERUM 108 MMOL/L (96-112); CO2 (CARBON DIOXIDE) 22 MMOL/L (24-34); CREATININE 0.91 MG/DL (0.55-1.02); GFR AFRICAN AMERICAN 70 ML/MIN (>=60); GFR NON AFRICAN AMERICAN 60 ML/MIN (>=60); GLUCOSE, SERUM 89 MG/DL (60-99); POTASSIUM, SERUM 4.7 MMOL/L (3.5-5.3); SODIUM, SERUM 139 MMOL/L (135-148)
[2016-10-18 04:52] LABS: BUN (BLOOD UREA NITROGEN) 22 MG/DL (6-23)
[2016-10-19 06:02] LABS: BASOPHILS 0.6 %; BASOPHILS ABSOLUTE 0.02 10/3/uL (0.0-0.16); EOSINOPHILS 5.3 %; EOSINOPHILS ABSOLUTE 0.18 10/3/uL (0.0-0.53); HEMATOCRIT 28.2 % (36.0-48.0); HEMOGLOBIN 8.8 g/dL (12.0-16.0); LYMPHOCYTES 28.5 %; LYMPHOCYTES ABSOLUTE 0.97 10/3/uL (0.67-4.30); MANUAL DIFF NO %; MEAN CORPUS HGB CONC 31.2 g/dL (32.0-36.0); MEAN CORPUSCULAR HEMOGLOB 27.8 pg (26.0-34.0); MEAN PLATELET VOLUME 9.1 fL (9.2-13.0); MONOCYTES 10.6 %; MONOCYTES ABSOLUTE 0.36 10/3/uL (0.21-1.20); NEUTROPHILS ABSOLUTE 1.87 10/3/uL (2.02-8.40); PLATELET COUNT 240 10/3/uL (150-400); RBC DISTRIBUTION WIDTH 15.3 % (12.0-16.0); RED CELL COUNT 3.17 10/6/uL (4.0-5.6); WHITE BLOOD CELLS 3.4 10/3/uL (4.5-10.5)
[2016-10-20 05:29] LABS: BASOPHILS 0.5 %; BASOPHILS ABSOLUTE 0.02 10/3/uL (0.0-0.16); EOSINOPHILS 3.8 %; EOSINOPHILS ABSOLUTE 0.14 10/3/uL (0.0-0.53); HEMATOCRIT 28.4 % (36.0-48.0); HEMOGLOBIN 8.8 g/dL (12.0-16.0); LYMPHOCYTES 25.5 %; LYMPHOCYTES ABSOLUTE 0.93 10/3/uL (0.67-4.30); MANUAL DIFF NO %; MEAN CORPUSCULAR HEMOGLOB 27.2 pg (26.0-34.0); MEAN CORPUSCULAR VOLUME 87.9 fL (80-100); MEAN PLATELET VOLUME 9.2 fL (9.2-13.0); MONOCYTES 9.9 %; MONOCYTES ABSOLUTE 0.36 10/3/uL (0.21-1.20); NEUTROPHILS 60.3 %; NEUTROPHILS ABSOLUTE 2.19 10/3/uL (2.02-8.40); PLATELET COUNT 265 10/3/uL (150-400); RBC DISTRIBUTION WIDTH 15.3 % (12.0-16.0); RED CELL COUNT 3.23 10/6/uL (4.0-5.6); WHITE BLOOD CELLS 3.6 10/3/uL (4.5-10.5)
[2016-10-20 05:43] LABS: CALCIUM, SERUM 9.2 MG/DL (8.5-10.4); CHLORIDE, SERUM 110 MMOL/L (96-112); CO2 (CARBON DIOXIDE) 25 MMOL/L (24-34); CREATININE 0.92 MG/DL (0.55-1.02); GFR AFRICAN AMERICAN 69 ML/MIN (>=60); GFR NON AFRICAN AMERICAN 59 ML/MIN (>=60); GLUCOSE, SERUM 98 MG/DL (60-99); POTASSIUM, SERUM 4.3 MMOL/L (3.5-5.3); SODIUM, SERUM 141 MMOL/L (135-148)
[2016-10-20 05:45] LABS: BUN (BLOOD UREA NITROGEN) 17 MG/DL (6-23)
[2016-10-21 04:08] LABS: BASOPHILS 0.6 %; BASOPHILS ABSOLUTE 0.03 10/3/uL (0.0-0.16); EOSINOPHILS 3.8 %; EOSINOPHILS ABSOLUTE 0.18 10/3/uL (0.0-0.53); HEMATOCRIT 28.1 % (36.0-48.0); HEMOGLOBIN 8.8 g/dL (12.0-16.0); IMMATURE GRANULOCYTES 0.4 %; IMMATURE GRANULOCYTES ABSOLUTE 0.02 10/3/uL (0.0-0.11); LYMPHOCYTES 26.7 %; LYMPHOCYTES ABSOLUTE 1.28 10/3/uL (0.67-4.30); MEAN CORPUS HGB CONC 31.3 g/dL (32.0-36.0); MEAN CORPUSCULAR HEMOGLOB 27.7 pg (26.0-34.0); MEAN CORPUSCULAR VOLUME 88.4 fL (80-100); MONOCYTES ABSOLUTE 0.48 10/3/uL (0.21-1.20); NEUTROPHILS 58.5 %; PLATELET COUNT 245 10/3/uL (150-400); RBC DISTRIBUTION WIDTH 15.4 % (12.0-16.0); RED CELL COUNT 3.18 10/6/uL (4.0-5.6); WHITE BLOOD CELLS 4.8 10/3/uL (4.5-10.5)
[2016-10-21 04:11] LABS: MANUAL DIFF NO %
[2016-10-21 04:18] LABS: BUN (BLOOD UREA NITROGEN) 16 MG/DL (6-23); CALCIUM, SERUM 9.5 MG/DL (8.5-10.4); CHLORIDE, SERUM 108 MMOL/L (96-112); CO2 (CARBON DIOXIDE) 23 MMOL/L (24-34); CREATININE 1.03 MG/DL (0.55-1.02); GFR AFRICAN AMERICAN 60 ML/MIN (>=60); GFR NON AFRICAN AMERICAN 52 ML/MIN (>=60); GLUCOSE, SERUM 99 MG/DL (60-99); SODIUM, SERUM 140 MMOL/L (135-148)
[2016-10-22 05:24] LABS: BASOPHILS 0.7 %; BASOPHILS ABSOLUTE 0.04 10/3/uL (0.0-0.16); EOSINOPHILS 2.4 %; EOSINOPHILS ABSOLUTE 0.14 10/3/uL (0.0-0.53); HEMOGLOBIN 9.8 g/dL (12.0-16.0); IMMATURE GRANULOCYTES 0.3 %; IMMATURE GRANULOCYTES ABSOLUTE 0.02 10/3/uL (0.0-0.11); LYMPHOCYTES 30.7 %; LYMPHOCYTES ABSOLUTE 1.79 10/3/uL (0.67-4.30); MEAN CORPUS HGB CONC 31.6 g/dL (32.0-36.0); MEAN CORPUSCULAR HEMOGLOB 27.7 pg (26.0-34.0); MEAN CORPUSCULAR VOLUME 87.6 fL (80-100); MEAN PLATELET VOLUME 8.9 fL (9.2-13.0); MONOCYTES ABSOLUTE 0.47 10/3/uL (0.21-1.20); NEUTROPHILS 57.9 %; NEUTROPHILS ABSOLUTE 3.38 10/3/uL (2.02-8.40); PLATELET COUNT 308 10/3/uL (150-400); RBC DISTRIBUTION WIDTH 15.8 % (12.0-16.0); RED CELL COUNT 3.54 10/6/uL (4.0-5.6); WHITE BLOOD CELLS 5.8 10/3/uL (4.5-10.5)
[2016-10-22 05:25] LABS: MANUAL DIFF NO %
[2016-10-22 05:29] LABS: INTERNATIONAL NORMAL RATI 1.3 UNITS (-); PROTIME (NOT ORD) 16.5 SEC (12.0-14.5)
[2016-10-22 05:39] LABS: A/G RATIO 0.9 (0.7-1.9); ALBUMIN 3.1 G/DL (3.5-5.0); ALKALINE PHOSPHATASE 170 U/L (45-117); BUN (BLOOD UREA NITROGEN) 11 MG/DL (6-23); CALCIUM, SERUM 9.6 MG/DL (8.5-10.4); CHLORIDE, SERUM 106 MMOL/L (96-112); CO2 (CARBON DIOXIDE) 24 MMOL/L (24-34); CREATININE 0.96 MG/DL (0.55-1.02); GFR AFRICAN AMERICAN 65 ML/MIN (>=60); GFR NON AFRICAN AMERICAN 56 ML/MIN (>=60); GLOBULIN 3.6 G/DL (2.5-4.1); GLUCOSE, SERUM 89 MG/DL (60-99); POTASSIUM, SERUM 4.4 MMOL/L (3.5-5.3); SGOT(AST) 21 U/L (5-40); SGPT(ALT) 17 U/L (5-65); SODIUM, SERUM 141 MMOL/L (135-148); TOTAL BILIRUBIN 0.4 MG/DL (0-1.2); TOTAL PROTEIN 6.7 G/DL (6.0-8.5)
[2016-10-23 05:10] LABS: BASOPHILS 0.3 %; BASOPHILS ABSOLUTE 0.02 10/3/uL (0.0-0.16); EOSINOPHILS 0.9 %; EOSINOPHILS ABSOLUTE 0.07 10/3/uL (0.0-0.53); HEMOGLOBIN 8.4 g/dL (12.0-16.0); IMMATURE GRANULOCYTES 0.1 %; IMMATURE GRANULOCYTES ABSOLUTE 0.01 10/3/uL (0.0-0.11); LYMPHOCYTES 15.6 %; LYMPHOCYTES ABSOLUTE 1.19 10/3/uL (0.67-4.30); MEAN CORPUS HGB CONC 31.1 g/dL (32.0-36.0); MEAN CORPUSCULAR HEMOGLOB 27.6 pg (26.0-34.0); MEAN CORPUSCULAR VOLUME 88.8 fL (80-100); MEAN PLATELET VOLUME 8.9 fL (9.2-13.0); MONOCYTES 9.5 %; MONOCYTES ABSOLUTE 0.73 10/3/uL (0.21-1.20); NEUTROPHILS 73.6 %; NEUTROPHILS ABSOLUTE 5.63 10/3/uL (2.02-8.40); PLATELET COUNT 250 10/3/uL (150-400); RED CELL COUNT 3.04 10/6/uL (4.0-5.6); WHITE BLOOD CELLS 7.7 10/3/uL (4.5-10.5)
[2016-10-23 05:12] LABS: MANUAL DIFF NO %
[2016-10-23 05:23] LABS: CHLORIDE, SERUM 108 MMOL/L (96-112); CO2 (CARBON DIOXIDE) 26 MMOL/L (24-34); GLUCOSE, SERUM 90 MG/DL (60-99); SODIUM, SERUM 140 MMOL/L (135-148)
[2016-10-23 05:25] LABS: BUN (BLOOD UREA NITROGEN) 22 MG/DL (6-23); CALCIUM, SERUM 8.5 MG/DL (8.5-10.4); CREATININE 1.46 MG/DL (0.55-1.02); GFR AFRICAN AMERICAN 39 ML/MIN (>=60); GFR NON AFRICAN AMERICAN 34 ML/MIN (>=60)
[2016-10-24 06:34] LABS: CALCIUM, SERUM 8.7 MG/DL (8.5-10.4); CHLORIDE, SERUM 110 MMOL/L (96-112); CO2 (CARBON DIOXIDE) 24 MMOL/L (24-34); CREATININE 1.26 MG/DL (0.55-1.02); GFR AFRICAN AMERICAN 47 ML/MIN (>=60); GFR NON AFRICAN AMERICAN 40 ML/MIN (>=60); GLUCOSE, SERUM 88 MG/DL (60-99); POTASSIUM, SERUM 4.7 MMOL/L (3.5-5.3); SODIUM, SERUM 136 MMOL/L (135-148)
[2016-10-24 06:35] LABS: BUN (BLOOD UREA NITROGEN) 28 MG/DL (6-23)
[2016-10-24 08:35] LABS: BASOPHILS 0.5 %; BASOPHILS ABSOLUTE 0.02 10/3/uL (0.0-0.16); EOSINOPHILS 3.9 %; EOSINOPHILS ABSOLUTE 0.17 10/3/uL (0.0-0.53); HEMATOCRIT 28.2 % (36.0-48.0); HEMOGLOBIN 8.6 g/dL (12.0-16.0); LYMPHOCYTES ABSOLUTE 1.41 10/3/uL (0.67-4.30); MEAN CORPUS HGB CONC 30.5 g/dL (32.0-36.0); MEAN CORPUSCULAR HEMOGLOB 27.2 pg (26.0-34.0); MEAN CORPUSCULAR VOLUME 89.2 fL (80-100); MONOCYTES 11.8 %; MONOCYTES ABSOLUTE 0.52 10/3/uL (0.21-1.20); NEUTROPHILS 51.8 %; NEUTROPHILS ABSOLUTE 2.28 10/3/uL (2.02-8.40); PLATELET COUNT 259 10/3/uL (150-400); RBC DISTRIBUTION WIDTH 17.2 % (12.0-16.0); RED CELL COUNT 3.16 10/6/uL (4.0-5.6)
[2016-10-24 08:39] LABS: MANUAL DIFF NO %; WHITE BLOOD CELLS 4.4 10/3/uL (4.5-10.5)
[2016-10-25 04:42] LABS: BASOPHILS 0.4 %; BASOPHILS ABSOLUTE 0.02 10/3/uL (0.0-0.16); EOSINOPHILS 4.2 %; HEMATOCRIT 28.9 % (36.0-48.0); HEMOGLOBIN 8.9 g/dL (12.0-16.0); IMMATURE GRANULOCYTES 0.2 %; IMMATURE GRANULOCYTES ABSOLUTE 0.01 10/3/uL (0.0-0.11); LYMPHOCYTES 30.2 %; LYMPHOCYTES ABSOLUTE 1.44 10/3/uL (0.67-4.30); MEAN CORPUS HGB CONC 30.8 g/dL (32.0-36.0); MEAN CORPUSCULAR HEMOGLOB 27.8 pg (26.0-34.0); MEAN CORPUSCULAR VOLUME 90.3 fL (80-100); MEAN PLATELET VOLUME 8.8 fL (9.2-13.0); MONOCYTES 8.8 %; MONOCYTES ABSOLUTE 0.42 10/3/uL (0.21-1.20); NEUTROPHILS 56.2 %; NEUTROPHILS ABSOLUTE 2.68 10/3/uL (2.02-8.40); PLATELET COUNT 252 10/3/uL (150-400); RBC DISTRIBUTION WIDTH 17.4 % (12.0-16.0); WHITE BLOOD CELLS 4.8 10/3/uL (4.5-10.5)
[2016-10-25 04:43] LABS: MANUAL DIFF NO %
[2016-10-25 04:47] LABS: CALCIUM, SERUM 9.4 MG/DL (8.5-10.4); CHLORIDE, SERUM 110 MMOL/L (96-112); CO2 (CARBON DIOXIDE) 23 MMOL/L (24-34); CREATININE 1.08 MG/DL (0.55-1.02); GFR AFRICAN AMERICAN 57 ML/MIN (>=60); GFR NON AFRICAN AMERICAN 49 ML/MIN (>=60); GLUCOSE, SERUM 88 MG/DL (60-99); POTASSIUM, SERUM 4.4 MMOL/L (3.5-5.3); SODIUM, SERUM 137 MMOL/L (135-148)
[2016-10-25 04:50] LABS: BUN (BLOOD UREA NITROGEN) 23 MG/DL (6-23)
[2016-10-26 05:13] LABS: HEMOGLOBIN 8.8 g/dL (12.0-16.0); MEAN CORPUS HGB CONC 31.4 g/dL (32.0-36.0); MEAN CORPUSCULAR HEMOGLOB 28.1 pg (26.0-34.0); MEAN CORPUSCULAR VOLUME 89.5 fL (80-100); PLATELET COUNT 262 10/3/uL (150-400); RBC DISTRIBUTION WIDTH 17.6 % (12.0-16.0); RED CELL COUNT 3.13 10/6/uL (4.0-5.6); WHITE BLOOD CELLS 4.1 10/3/uL (4.5-10.5)
[2016-10-26 05:16] LABS: MANUAL DIFF YES %
[2016-10-26 05:25] LABS: A/G RATIO 0.8 (0.7-1.9); ALBUMIN 2.9 G/DL (3.5-5.0); ALKALINE PHOSPHATASE 188 U/L (45-117); BUN (BLOOD UREA NITROGEN) 23 MG/DL (6-23); CALCIUM, SERUM 9.2 MG/DL (8.5-10.4); CHLORIDE, SERUM 109 MMOL/L (96-112); CO2 (CARBON DIOXIDE) 24 MMOL/L (24-34); CREATININE 0.98 MG/DL (0.55-1.02); GFR AFRICAN AMERICAN 64 ML/MIN (>=60); GFR NON AFRICAN AMERICAN 55 ML/MIN (>=60); GLOBULIN 3.6 G/DL (2.5-4.1); GLUCOSE, SERUM 85 MG/DL (60-99); SGPT(ALT) 19 U/L (5-65); SODIUM, SERUM 136 MMOL/L (135-148); TOTAL BILIRUBIN 0.3 MG/DL (0-1.2); TOTAL PROTEIN 6.5 G/DL (6.0-8.5)
[2016-10-26 05:26] LABS: CEA 4.9 NG/ML; SGOT(AST) 33 U/L (5-40)
[2016-10-26 05:37] LABS: ANISOCYTOSIS 1+ (5-10/OIF) (0-5/OIF); EOSINOPHILS 3 %; EOSINOPHILS ABSOLUTE (CALC) 0.12 10/3/uL (0.0-0.53); LYMPHOCYTES 27 %; LYMPHOCYTES ABSOLUTE (CALC) 1.11 10/3/uL (0.67-4.30); MONOCYTES 9 %; MONOCYTES ABSOLUTE (CALC) 0.37 10/3/uL (0.21-1.20); PLATELET ESTIMATE ADQ (ADEQUATE); SEGMENTED NEUTROPHIL (0) 61 %; TOTAL NUCLEATED CELLS 100
[2016-10-26 05:38] LABS: HYPOCHROMIA 1+ (3-10/OIF) (0-2/OIF); TEARDROP SHAPED RBCS OCC (0-2/OIF)
[2016-10-28 04:31] LABS: BASOPHILS 0.9 %; BASOPHILS ABSOLUTE 0.04 10/3/uL (0.0-0.16); EOSINOPHILS 4.4 %; EOSINOPHILS ABSOLUTE 0.19 10/3/uL (0.0-0.53); HEMATOCRIT 28.5 % (36.0-48.0); HEMOGLOBIN 8.9 g/dL (12.0-16.0); LYMPHOCYTES 33.1 %; LYMPHOCYTES ABSOLUTE 1.44 10/3/uL (0.67-4.30); MEAN CORPUS HGB CONC 31.2 g/dL (32.0-36.0); MEAN CORPUSCULAR HEMOGLOB 28.2 pg (26.0-34.0); MEAN CORPUSCULAR VOLUME 90.2 fL (80-100); MEAN PLATELET VOLUME 9.4 fL (9.2-13.0); MONOCYTES 10.8 %; MONOCYTES ABSOLUTE 0.47 10/3/uL (0.21-1.20); NEUTROPHILS 50.8 %; NEUTROPHILS ABSOLUTE 2.21 10/3/uL (2.02-8.40); PLATELET COUNT 255 10/3/uL (150-400); RBC DISTRIBUTION WIDTH 18.4 % (12.0-16.0); RED CELL COUNT 3.16 10/6/uL (4.0-5.6); WHITE BLOOD CELLS 4.4 10/3/uL (4.5-10.5)
[2016-10-28 04:32] LABS: MANUAL DIFF NO %
[2016-10-28 04:35] LABS: INTERNATIONAL NORMAL RATI 1.2 UNITS (-); PROTIME (NOT ORD) 15.4 SEC (12.0-14.5)
[2016-10-28 04:50] LABS: CALCIUM, SERUM 8.9 MG/DL (8.5-10.4); CHLORIDE, SERUM 108 MMOL/L (96-112); CO2 (CARBON DIOXIDE) 25 MMOL/L (24-34); GFR AFRICAN AMERICAN 50 ML/MIN (>=60); GFR NON AFRICAN AMERICAN 43 ML/MIN (>=60); GLUCOSE, SERUM 85 MG/DL (60-99); POTASSIUM, SERUM 4.4 MMOL/L (3.5-5.3); SODIUM, SERUM 133 MMOL/L (135-148)
[2016-10-28 04:53] LABS: BUN (BLOOD UREA NITROGEN) 30 MG/DL (6-23)
== END 2016-10-29 19:14 | disposition home or self-care (01) | DRG 394 ==
LOC: ER 08:59 → 6NO 12:49
PROVIDERS: Emergency Medicine; Internal Medicine; Internal Medicine Gastroenterology; Thoracic Surgery (Cardiothoracic Vascular Surgery)
PROC: 0DJ08ZZ Inspection of Upper Intestinal Tract, Via Natural or Artificial Opening Endoscopic (ICD-10-PCS; 2016-10-22)
PROC: 0DBK8ZX Excision of Ascending Colon, Via Natural or Artificial Opening Endoscopic, Diagnostic (ICD-10-PCS; principal; 2016-10-22 15:09)
PROC: 0DBH8ZX Excision of Cecum, Via Natural or Artificial Opening Endoscopic, Diagnostic (ICD-10-PCS; 2016-10-22 15:09)
PROC: 0DBP8ZX Excision of Rectum, Via Natural or Artificial Opening Endoscopic, Diagnostic (ICD-10-PCS; 2016-10-22 15:09)
PROC: 0DBM8ZX Excision of Descending Colon, Via Natural or Artificial Opening Endoscopic, Diagnostic (ICD-10-PCS; 2016-10-22 15:09)
DX: D12.2 Benign neoplasm of ascending colon (principal); N17.9 Acute kidney failure, unspecified; K92.2 Gastrointestinal hemorrhage, unspecified; I48.0 Paroxysmal atrial fibrillation; I08.3 Combined rheumatic disorders of mitral, aortic and tricuspid valves; D62 Acute posthemorrhagic anemia; I25.10 Atherosclerotic heart disease of native coronary artery without angina pectoris; E78.5 Hyperlipidemia, unspecified; D12.6 Benign neoplasm of colon, unspecified; D12.4 Benign neoplasm of descending colon; D12.0 Benign neoplasm of cecum; K64.0 First degree hemorrhoids; R62.7 Adult failure to thrive; M47.812 Spondylosis without myelopathy or radiculopathy, cervical region; N18.3 Chronic kidney disease, stage 3 (moderate); I12.9 Hypertensive chronic kidney disease with stage 1 through stage 4 chronic kidney disease, or unspecified chronic kidney disease; E03.9 Hypothyroidism, unspecified; Z96.641 Presence of right artificial hip joint; Z86.73 Personal history of transient ischemic attack (TIA), and cerebral infarction without residual deficits; Z79.01 Long term (current) use of anticoagulants; Z53.09 Procedure and treatment not carried out because of other contraindication; Z79.02 Long term (current) use of antithrombotics/antiplatelets; Z90.710 Acquired absence of both cervix and uterus; Z79.82 Long term (current) use of aspirin; Z79.899 Other long term (current) drug therapy; S50.11XA Contusion of right forearm, initial encounter; S20.211A Contusion of right front wall of thorax, initial encounter; S05.11XA Contusion of eyeball and orbital tissues, right eye, initial encounter; W01.198A Fall on same level from slipping, tripping and stumbling with subsequent striking against other object, initial encounter
CPT/HCPCS: 36415; 70450; 70486; 71010; 71260; 71275; 72125; 74174; 74177; 80048; 80053; 82248; 82272; 82378; 82607; 82728; 82746; 83540; 83550; 83735; 83880; 84439; 84443; 84484; 85025; 85045; 85610; 85730; 86850; 86900; 86901; 86920; 88305; 93005; 93880; 96374; 96375; 97161-GP; 99284; 99291; A9270-GY; C8929; G8978-CJ-GP; G8980-CJ-GP; J0690; J1170; J2370; J2405; J2916; Q9957; Q9967

== ENCOUNTER 2016-11-08 10:49 | Inpatient (IN) | payer MEDICARE, OTHER ==
[2016-11-04 13:00] LABS: BASOPHILS 0.2 %; BASOPHILS ABSOLUTE 0.01 10/3/uL (0.0-0.16); EOSINOPHILS 2.2 %; EOSINOPHILS ABSOLUTE 0.11 10/3/uL (0.0-0.53); IMMATURE GRANULOCYTES 0.2 %; IMMATURE GRANULOCYTES ABSOLUTE 0.01 10/3/uL (0.0-0.11); LYMPHOCYTES 30.1 %; MEAN CORPUS HGB CONC 31.4 g/dL (32.0-36.0); MEAN CORPUSCULAR HEMOGLOB 28.5 pg (26.0-34.0); MEAN CORPUSCULAR VOLUME 90.7 fL (80-100); MEAN PLATELET VOLUME 9.2 fL (9.2-13.0); MONOCYTES 8.4 %; MONOCYTES ABSOLUTE 0.42 10/3/uL (0.21-1.20); NEUTROPHILS 58.9 %; NEUTROPHILS ABSOLUTE 2.93 10/3/uL (2.02-8.40); PLATELET COUNT 277 10/3/uL (150-400); RBC DISTRIBUTION WIDTH 20.4 % (12.0-16.0); RED CELL COUNT 3.76 10/6/uL (4.0-5.6)
[2016-11-04 13:02] LABS: HEMATOCRIT 34.1 % (36.0-48.0); HEMOGLOBIN 10.7 g/dL (12.0-16.0); MANUAL DIFF NO %
[2016-11-04 13:04] LABS: INTERNATIONAL NORMAL RATI 1.3 UNITS (-); PROTIME (NOT ORD) 16.1 SEC (12.0-14.5)
[2016-11-04 13:21] LABS: ASCORBIC ACID (UR NOT ORDER) NEG (NEG); BILIRUBIN, URINE NEGATIVE (NEG); KETONE, URINE NEGATIVE (NEG); LEUKOCYTE ESTERASE(NOT OR NEG (NEG); WBC (NOT ORDERED) (RFLEX) 2 (0-5)
[2016-11-04 13:27] LABS: CALCIUM, SERUM 9.6 MG/DL (8.5-10.4); CHLORIDE, SERUM 108 MMOL/L (96-112); CO2 (CARBON DIOXIDE) 21 MMOL/L (24-34); CREATININE 1.01 MG/DL (0.55-1.02); GFR AFRICAN AMERICAN 61 ML/MIN (>=60); GFR NON AFRICAN AMERICAN 53 ML/MIN (>=60); GLUCOSE, SERUM 81 MG/DL (60-99); POTASSIUM, SERUM 4.3 MMOL/L (3.5-5.3); SGOT(AST) 25 U/L (5-40); SGPT(ALT) 22 U/L (5-65); SODIUM, SERUM 137 MMOL/L (135-148); TOTAL BILIRUBIN 0.6 MG/DL (0-1.2); TOTAL PROTEIN 7.2 G/DL (6.0-8.5)
[2016-11-04 13:28] LABS: GLYCOHEMOGLOBIN (HbA1c) 5.2 % (4.7-6.1)
[2016-11-04 13:29] LABS: A/G RATIO 1.2 (0.7-1.9); ALBUMIN 3.9 G/DL (3.5-5.0); ALKALINE PHOSPHATASE 261 U/L (45-117); BUN (BLOOD UREA NITROGEN) 25 MG/DL (6-23); GLOBULIN 3.3 G/DL (2.5-4.1)
--- NOTE | ~2016-11-08 | OP ---
Record Of Operation [facility] [address] [place]. [address] NAME: EMELYN TAI : 37 STATUS : ADM IN PAT#: [id number] AGE: 81 ADM/REG DATE : 11/08/16 MR#: [id number] REPORT SERV DATE: 11/09/16 DICTATED BY: ELIDA ARANDA DATE: 11/08/16 REPORT STATUS : Draft TRANSCRIBED BY: MCKAYLA DATE: 11/08/16 DATE OF PROCEDURE: PROCEDURE: Left transfemoral transcatheter aortic valve replacement using 23 mm S3 valve. INDICATION FOR THE PROCEDURE: Ms. Emelyn Tai is an 81-year-old woman with severe aortic stenosis. She has a history of atrial fibrillation, coronary artery disease, hypertension, hyperlipidemia, right hip replacement, iron-deficiency anemia, prior GI bleed, colonic mass, chronic kidney disease, adrenal nodule, hypertension, and prior stroke. Echocardiogram demonstrated aortic valve area of 0.7, peak gradient 64, mean gradient 44. The cardiac catheterization demonstrated disease limited to the LAD. Her predicted mortality with STS score was 4.3%, predicted morbidity and mortality 19.6%, predicted mortality for surgical aortic valve replacement using Euro[employer]ORE is 3.3%. Both Dr. Jimenez and Dr. Fraser felt she was high risk for surgical aortic valve replacement and should be referred for TAVR. The entire Valve Team felt she is a better candidate for TAVR as well. She presents with [place] Heart Association class 3 symptoms. OPERATIVE TECHNIQUE: The patient was prepped and draped in the usual sterile fashion. She received propofol anesthesia, she was not intubated. She did not have a Martin catheter. She did have a radial A-line as well as right heart catheter in place. She was prepped and draped in the usual sterile fashion. Both left and right groins were anesthetized with lidocaine 1% 12 mL. Access of both left and right femoral arteries were obtained using micropuncture technique, angiogram confirmed access to common femoral arteries. A 6-Congolese sheath placed in left and the right common femoral arteries, 6-Congolese sheath was placed in the right femoral vein as well, using micropuncture. Pigtail catheter was placed in the right femoral artery to allow us to assess the valve position. The pacemaker was placed in the right femoral vein. Two ProGlide sutures were placed in the 10 o'clock and 2 o'clock position in the left femoral artery, using the pre-close technique. The 6-Congolese sheath was replaced in the left femoral artery, the multipurpose catheter was placed in the ascending aorta, that J-wire was removed for a Lunderquist wire. Heparin was delivered IV. The Olvera sheath was placed without difficulty. With the Lunderquist wire in place, the AL1 was advanced to the ascending aorta, the aortic valve was then crossed without difficulty using the AL2 catheter with a straight wire. Once we crossed in the left ventricle, the AL2 catheter was exchanged for a pigtail catheter over exchange length J- wire. At this time, simultaneous pressures were obtained in the left ventricle and the ascending aorta. We then took out the J-wire through left ventricle, and placed the preformed Amplatz extra-stiff wire in the left ventricle. Record Of Operation [facility] [address] [facility] [place]. [address] NAME: EMELYN TAI : 37 STATUS : ADM IN PAT#: [id number] AGE: 81 ADM/REG DATE : 11/08/16 MR#: [id number] REPORT SERV DATE: 11/09/16 DICTATED BY: ELIDA ARANDA DATE: 11/08/16 REPORT STATUS : Draft TRANSCRIBED BY: MCKAYLA DATE: 11/08/16 Again, heparin had been delivered prior to the sheath placement, the activating clotting time remained therapeutic. We then proceeded with transcatheter aortic valve implantation. The valve was assembled in the ascending aorta. We crossed the [place] aortic valve without difficulty. With rapid ventricular pacing, the Olvera valve was deployed. The chest wall echo and thoracic aortogram demonstrated trace aortic insufficiency after removal of the wire from the left ventricle. Simultaneous pressures were obtained in the left ventricle and ascending aorta as well. We then removed the Olvera sheath from the left femoral artery. The two ProGlide sutures were tightened. The completion angiogram demonstrated no extravasation and no stenosis at the access site. The chest wall echo demonstrated trace pericardial effusion. There is mild mitral regurgitation. The QRS complex remain narrow. The right heart catheter and pacemaker were removed. The total rapid pacing time was 20 seconds. The actual time of valve deployment is 1545. The cardiac output pre-deployment was 0.2 L/minute, post deployment L/minute. The valve area increased from 0.6 cm2 to 3.8 cm2. The blood pressure pre-deployment was 110/47, mean of 7, heart rate 89. Post deployment blood pressure was 119/45, mean 75, heart rate 90. The pre-implantation aortic valve gradient was 33 mmHg mean, 38 mmHg peak to peak. Postprocedure, the mean and peak gradients were 1 mmHg. Total contrast volume used was 105 mL. Total fluoro time was 23.1 minutes. Estimated blood loss was less than 50 mL. Total radiation dose was 1212 mGy. The AI index was 28. In short, the patient underwent a left transfemoral transcatheter aortic valve replacement using a 23-mm Olvera S3 valve. The gradient decreased from 38 mm peak to peak to 1 mm peak to peak. There is no bleeding at the access site, there is no stenosis or extravasation by the completion angiogram. The patient will be treated with clopidogrel and resumption of her Eliquis. STACI/MCKAYLA Elida Aranda M.D. / [id number] CC: Record Of Operation [address] [address] NAME: EMELYN TAI : 37 STATUS : ADM IN [facility]#: [id number] AGE: 81 ADM/REG DATE : 11/08/16 MR#: [id number] REPORT SERV DATE: 11/09/16 DICTATED BY: ELIDA ARANDA DATE: 11/08/16 REPORT STATUS : Draft TRANSCRIBED BY: MCKAYLA DATE: 11/08/16 Bhargav Jimenez M.D.
--- NOTE | ~2016-11-08 | OP ---
Record Of Operation [facility] [address] [place]. [address] NAME: DIRK TAI : 37 STATUS : ADM IN PAT#: [id number] AGE: 81 ADM/REG DATE : 11/08/16 MR#: [id number] REPORT SERV DATE: 11/08/16 DICTATED BY: LB RICH DATE: 11/08/16 REPORT STATUS : Draft TRANSCRIBED BY: MODL DATE: 11/08/16 DATE OF PROCEDURE: 11/08/2016 PREOPERATIVE DIAGNOSES: 1. Severe aortic stenosis. 2. Coronary artery disease. 3. Hypertension. 4. Hyperlipidemia. 5. Peripheral vascular disease. 6. Gastrointestinal bleed. 7. Colonic polyps. 8. Chronic kidney disease, 3. 9. Acute on chronic congestive heart failure. POSTOPERATIVE DIAGNOSES: 1. 2. Severe aortic stenosis. 3. Coronary artery disease. 4. Hypertension. 5. Hyperlipidemia. 6. Peripheral vascular disease. 7. Gastrointestinal bleed. 8. Colonic polyps. 9. Chronic kidney disease, 3. 10.Acute on chronic congestive heart failure. OPERATION AND PROCEDURE PERFORMED: 1. Left transfemoral transaortic valve replacement with 23 mm Brisa 3 Olvera valve. 2. ProGlide closure of the left femoral artery x2. 3. ProGlide closure of the right femoral artery x1. 4. Right transfemoral temporary venous pacemaker placement. 5. Contrast ascending aortography. 6. Left iliofemoral aortography with runoff. 7. Transthoracic echo. SURGEON: 1. Lb Rich MD. 2. Bhargav Jimenez M.D. 3. Anthony Aranda M.D. 4. Rodriguez Denny M.D. ECHOCARDIOGRAPHY: Julio Cesar Moe M.D., Ph.D, F.A.C.C. COMPLICATIONS: None. ESTIMATED BLOOD LOSS: Less than 50 mL. Record Of Operation [facility] [address] [place]. [address] NAME: DIRK TAI : 37 STATUS : ADM IN PAT#: [id number] AGE: 81 ADM/REG DATE : 11/08/16 MR#: [id number] REPORT SERV DATE: 11/08/16 DICTATED BY: LB RICH DATE: 11/08/16 REPORT STATUS : Draft TRANSCRIBED BY: MODL DATE: 11/08/16 INTRAOPERATIVE FINDINGS: 1. Total time rapid pacing is 20 seconds. 2. Actual time of TAVR department 1545. 3. Cardiac output pre-deployment was 4.2, post-deployment was 4.8. 4. Valve area post-deployment was 3.83 sq cm. Valve area pre-deployment was 0.58 sq cm. 5. Pre and postimplant systolic and diastolic pressures. Preimplant pressure: Systolic 110, diastolic 47, mean 70, heart rate 89. Postimplant: Systolic 119, diastolic 45, mean 75, heart rate 90. Preimplant AV gradient mean of 33, peak of 38. Postimplant AV gradient mean of 5, peak of 4. Contrast volume used 105 mL. Fluoro time was 23.1 minutes. Estimated blood loss less than 50. Total mGy use was 1212. AI index was 28. INDICATIONS FOR PROCEDURE: Ms. Tai is an 81-year-old female with known history of aortic stenosis and coronary artery disease who had been worked up in [place] for her aortic stenosis at the [facility]. She was in [place] and had a fall with was felt to be from either anemia or from the syncope from aortic stenosis. The patient additionally had a colonoscopy, which showed four colonic polyps, three of which were able to be removed, the other was large and could not be removed, and she would need a colectomy for. She was deemed to be intermediate risk for coronary artery bypass grafting with a TAVR, was felt to be a better candidate for a coronary artery bypass grafting with surgical aortic valve, and was felt to be a better candidate for TAVR by myself and Dr. Bhargav Jimenez. Risks, benefits, alternatives were discussed with the patient including but not limited to, bleeding, infection, stroke, , heart attack, need for future operations. All questions were answered. DETAILS OF PROCEDURE: The patient was brought to the operating room, placed supine on the operating room table. After satisfactory induction of monitored anesthesia care, she was prepped and draped in usual sterile fashion. Using micropuncture technique, the right common femoral artery, the right common femoral vein, the left common femoral artery were all accessed with a micropuncture needle. A guidewire with the sheath contrast injection was used for placement and then 6-Faroese femoral sheaths were placed. A right transfemoral temporary venous pacemaker was placed and thresholds were confirmed with the pacemaker. Pigtail was then introduced over an exchange J-wire. The noncoronary sinus contrast aortography was used to confirm deployment angle. Two ProGlide devices were placed in the left femoral artery. A 6 femoral sheath was then reintroduced. An exchanged J was used to advance a multipurpose catheter to the ascending aorta. The exchange J wire was then exchanged for a Lunderquist wire. Systemic heparinization was achieved with total of 10,000 units of heparin and the Olvera sheath was placed in the left femoral artery. An AL1 catheter was then placed in the Lunderquist wire. The Lunderquist wire was removed and the straight wire was used to attempt to cross the valve. Multiple attempts were made with an AL1 could not be placed and the exchange J was brought up, placed through the AL1, and the AL1 was removed and AL2 was used. The straight wire was again brought up and used across the valve. The AL2 was advanced in the ventricle and the straight wire was removed. An exchange J wire was placed and the pigtail was placed. Simultaneous pressures were recorded in the left ventricle in the ascending aorta. The extra stiff wire was placed through the pigtail and the valve was brought up. The valve was brought up. The confirmation of orientation was obtained. The valve was placed into the sheath and then advanced through Record Of Operation [address] [place]. [address] NAME: DIRK TAI : 37 STATUS : ADM IN [facility]#: [id number] AGE: 81 ADM/REG DATE : 11/08/16 MR#: [id number] REPORT SERV DATE: 11/08/16 DICTATED BY: LB RICH DATE: 11/08/16 REPORT STATUS : Draft TRANSCRIBED BY: MODL DATE: 11/08/16 the sheath and in the straight portion of the descending aorta. The balloon was pulled back into the valve and then the valve was advanced around the arch and across the valve. Valve deployment was then performed. Contrast aortography was performed to ensure the depth of the valve. Rapid pacing was performed and the valve was deployed. Post-deployment contrast aortography did not reveal significant AI. Post-deployment transthoracic echocardiography did not demonstrate any significant AI. There was a trace perivalvular leak. The valve was removed from the from the sheath. Sheath was removed over a guidewire and over the extra stiff wire and then the two ProGlide closures were used on the left transfemoral artery. The pigtail in the right was pulled back down to the aortic bifurcation and contrast aortography with a right iliofemoral runoff was performed. This demonstrated a small defect in the left femoral artery, but did not feel that this was clinically significant. The pacemaker and the [place] catheter were removed under fluoro and then the right transfemoral catheter was removed over a wire. A one ProGlide device was used in this to close the artery. Repeat aortography at the end of the case did not demonstrate any pericardial effusion or compromise. There were pedal pulses present. The patient was sent to the CVICU in good condition. C/MCKAYLA Lb Rich MD / [id number] CC: Bhargav Jimenez M.D.
[~2016-11-08 10:49] MED LIST changes: +CALTRA600D PO; +CORDARONE PO; +ELIQUIS 2.5 MG2.5 MG PO; +KLOR-CON M2020 MEQ PO; +L20 PO; +LOP25 PO; +NORV5 PO
[2016-11-08 17:13] LABS: HEMOGLOBIN 9.9 g/dL (12.0-16.0)
[2016-11-08 17:16] LABS: HEMATOCRIT 30.5 % (36.0-48.0)
[2016-11-08 17:20] LABS: INTERNATIONAL NORMAL RATI 1.8 UNITS (-); PROTIME (NOT ORD) 20.8 SEC (12.0-14.5)
[2016-11-08 17:23] LABS: CHLORIDE, SERUM 113 MMOL/L (96-112); CO2 (CARBON DIOXIDE) 22 MMOL/L (24-34); CREATININE 0.78 MG/DL (0.55-1.02); GFR AFRICAN AMERICAN 83 ML/MIN (>=60); GFR NON AFRICAN AMERICAN 72 ML/MIN (>=60); GLUCOSE, SERUM 92 MG/DL (60-99); POTASSIUM, SERUM 4.2 MMOL/L (3.5-5.3); SODIUM, SERUM 141 MMOL/L (135-148)
[2016-11-08 17:24] LABS: BUN (BLOOD UREA NITROGEN) 13 MG/DL (6-23); CALCIUM, SERUM 8.2 MG/DL (8.5-10.4)
[2016-11-08 17:42] LABS: PARTIAL THROMBO TIME > 150.0 SEC (22.5-37.2)
[2016-11-08 22:34] LABS: HEMOGLOBIN 9.5 g/dL (12.0-16.0)
[2016-11-08 22:43] LABS: POTASSIUM, SERUM 3.5 MMOL/L (3.5-5.3)
[2016-11-09 03:43] LABS: BASOPHILS 0.2 %; BASOPHILS ABSOLUTE 0.01 10/3/uL (0.0-0.16); EOSINOPHILS 0 %; HEMATOCRIT 27.7 % (36.0-48.0); HEMOGLOBIN 8.8 g/dL (12.0-16.0); IMMATURE GRANULOCYTES 0.2 %; IMMATURE GRANULOCYTES ABSOLUTE 0.01 10/3/uL (0.0-0.11); LYMPHOCYTES 9.4 %; LYMPHOCYTES ABSOLUTE 0.51 10/3/uL (0.67-4.30); MEAN CORPUS HGB CONC 31.8 g/dL (32.0-36.0); MEAN CORPUSCULAR HEMOGLOB 29.3 pg (26.0-34.0); MEAN CORPUSCULAR VOLUME 92.3 fL (80-100); MEAN PLATELET VOLUME 8.6 fL (9.2-13.0); MONOCYTES ABSOLUTE 0.49 10/3/uL (0.21-1.20); NEUTROPHILS 81.2 %; NEUTROPHILS ABSOLUTE 4.41 10/3/uL (2.02-8.40); RBC DISTRIBUTION WIDTH 20.9 % (12.0-16.0); WHITE BLOOD CELLS 5.4 10/3/uL (4.5-10.5)
[2016-11-09 03:48] LABS: MANUAL DIFF NO %; PLATELET COUNT 151 10/3/uL (150-400)
[2016-11-09 03:50] LABS: INTERNATIONAL NORMAL RATI 1.4 UNITS (-); PROTIME (NOT ORD) 17.2 SEC (12.0-14.5)
[2016-11-09 03:54] LABS: BUN (BLOOD UREA NITROGEN) 15 MG/DL (6-23); CALCIUM, SERUM 8.4 MG/DL (8.5-10.4); CHLORIDE, SERUM 112 MMOL/L (96-112); CO2 (CARBON DIOXIDE) 22 MMOL/L (24-34); CREATININE 0.81 MG/DL (0.55-1.02); GFR AFRICAN AMERICAN 80 ML/MIN (>=60); GFR NON AFRICAN AMERICAN 69 ML/MIN (>=60); GLUCOSE, SERUM 106 MG/DL (60-99); SODIUM, SERUM 141 MMOL/L (135-148)
[2016-11-09 03:55] LABS: POTASSIUM, SERUM 4.7 MMOL/L (3.5-5.3)
[2016-11-09] MEDS ORDERED: PLAVIX PO (16:49)
== END 2016-11-09 17:30 | disposition home or self-care (01) | DRG 266 ==
LOC: SDC/OF 10:49 → CVICU 14:58
PROVIDERS: Thoracic Surgery (Cardiothoracic Vascular Surgery)
PROC: B246YZZ Ultrasonography of Right and Left Heart using Other Contrast (ICD-10-PCS; 2016-11-08)
PROC: 02RF38Z Replacement of Aortic Valve with Zooplastic Tissue, Percutaneous Approach (ICD-10-PCS; principal; 2016-11-08 12:30)
DX: I35.0 Nonrheumatic aortic (valve) stenosis (principal); I50.33 Acute on chronic diastolic (congestive) heart failure; K92.2 Gastrointestinal hemorrhage, unspecified; I48.2 Chronic atrial fibrillation; Z00.6 Encounter for examination for normal comparison and control in clinical research program; I25.10 Atherosclerotic heart disease of native coronary artery without angina pectoris; E78.5 Hyperlipidemia, unspecified; I12.9 Hypertensive chronic kidney disease with stage 1 through stage 4 chronic kidney disease, or unspecified chronic kidney disease; N18.3 Chronic kidney disease, stage 3 (moderate); K63.5 Polyp of colon; Z96.641 Presence of right artificial hip joint; Z86.73 Personal history of transient ischemic attack (TIA), and cerebral infarction without residual deficits
CPT/HCPCS: 36415; 71010; 71020; 80048; 80053; 81001; 82330; 82803; 82947; 82962; 83036; 83735; 83880; 84132; 84295; 85014; 85018; 85025; 85347; 85610; 85730; 86850; 86900; 86901; 87641; 93005; A9270-GY; C1751; C1769; C1894; C8929; J0690; J2250; J2370; J2405; J3010; J3475; P9045; Q9957